=== PATIENT | male | born 1975 | race Caucasian/White ===

== ENCOUNTER 2023-01-13 15:17 | Outpatient (CLI) | payer OTHER, SELFPAY ==
--- NOTE | ~2023-01-13 | CT_ITS ---
CT Scan of the Chest without Contrast: Clinical Indication: Lung cancer screening, personal history of nicotine dependence Technique: Contiguous sections were acquired throughout the chest without intravenous contrast. Dose reduction technique was used on this scan by utilizing automated exposure control and iterative recon struction technique. The dose-length product (DLP) was 89.31 mGy-cm. Findings: There is no evidence of any significant mediastinal, hilar or axillary lymphadenopathy. Coronary farzad ry calcifications are present. There is no evidence of pleural or pericardial effusion. Calcified left upper lobe granuloma present. No other pulmonary abnormality seen. Images through the upper abdomen reveal no abnormalities. Impression: Lung RADS 2: Benign appearance. 12 month follow-up screening CT advised. Reviewed, dictated and finalized at location . Impression: Lung RADS 2: Benign appearance. 12 month follow-up screening CT advised.
== END 2023-01-13 15:18 | disposition home or self-care (01) ==
PROVIDERS: PCP Internal Medicine; Visit Provider Nurse Practitioner
DX: F17.210 Nicotine dependence, cigarettes, uncomplicated (principal)
CPT/HCPCS: 71271

== ENCOUNTER 2023-05-27 08:55 | Emergency (ER) | payer OTHER, SELFPAY ==
--- NOTE | 2023-05-27 08:56 | ECG_ITS ---
Measurements Intervals [place] Rate: 65 P: 55 PA: 152 QRS: 33 QRSD: 97 T: 38 QT: 373 QTc: 390 Interpretive Statements SINUS RHYTHM POSSIBLE LEFT ATRIAL ENLARGEMENT [-0.1mV P-WAVE IN V1/V2] INCOMPLETE RIGHT BUNDLE BRANCH BLOCK [90+ ms QRS DURATION, TERMINAL R IN V1/V2, 40+ ms S IN I/aVL/V4/V5/V6] NO PREVIOUS ECG AVAILABLE FOR COMPARISON Electronically Signed On 05-27-2023 12:45:40 CDT by Nelli Locke M.D.
[2023-05-27 08:57] VITALS: BP 143/82; PULSE 65; RESP 20; TEMP 36.6; O2SAT 100
--- NOTE | 2023-05-27 09:58 | PC.NURSE ---
Pt to nursing station, states he would like to check out. 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 Pt advised to stay for evaluation and if symptoms worsen to seek medical care.
== END 2023-05-27 09:58 | disposition left against medical advice (07) ==
PROVIDERS: Emergency Provider Preventive Medicine Aerospace Medicine; PCP Internal Medicine
DX: F41.9 Anxiety disorder, unspecified (principal)
CPT/HCPCS: 93005; 99199

== ENCOUNTER 2023-06-11 07:29 | Outpatient (CLI) | payer OTHER, SELFPAY ==
--- NOTE | ~2023-06-11 | MR_ITS ---
MRI of the brain Clinical History: Hemiplegia Technique: Axial and sagittal T1-weighted images were acquired. These were followed by axial T2-weigh mauro, diffusion weighted, gradient, and FLAIR images. Following intravenous administration of 13 cc Mu ltiHance gadolinium, T1-weighted fat-sat imaging was performed in the axial and coronal planes. Findings: No abnormal signal seen in the brain parenchyma. No acute infarct, intracranial hemorrhage, or mass lesion. Ventricles and subarachnoid spaces are unremarkable. Orbits are unremarkable. Paranasal sinuses and m astoid air cells are clear. Major intracranial flow voids are intact. No abnormal postcontrast enhancement identified. IMPRESSION: Unremarkable exam. Reviewed, dictated and finalized at location M. IMPRESSION: Unremarkable exam.
--- NOTE | ~2023-06-11 | US_ITS ---
Abdominal Sonogram: Real-time sonographic imaging of the abdomen was performed. Clinical History: Abdominal pain Findings: The liver appears normal with no evidence of mass lesion or bile duct dilatation. Main por daniella vein demonstrates normal direction of flow. The spleen is normal in size without evidence of foca l lesion. The gallbladder is well distended, and appears normal with no evidence of gallstone or wal l thickening. The common bile duct measures 6 mm. The visualized pancreas, aorta, and IVC are unrema rkable. The right kidney measures 11.3 cm in length and the left kidney measures 11.6 cm. There is no hydronephrosis or renal calculus. Impression: Unremarkable abdominal ultrasound. Reviewed, dictated and finalized at location . Impression: Unremarkable abdominal ultrasound.
--- NOTE | ~2023-06-11 | XR_ITS ---
EXAMINATION: XR chest 2V 06/11/2023 07:52 INDICATION: Shortness of breath PROCEDURE: 2 view chest COMPARISON: No prior studies for comparison. FINDINGS: The lungs are clear. The cardiomediastinal silhouette is within normal limits. There are no pleural effusions. There is no pneumothorax suspected. IMPRESSION: 1: NO ACUTE CARDIOPULMONARY DISEASE. Reviewed, dictated and finalized at location A.
== END 2023-06-11 07:30 | disposition home or self-care (01) ==
PROVIDERS: PCP Internal Medicine; Visit Provider Internal Medicine
DX: R10.11 Right upper quadrant pain (principal); R06.02 Shortness of breath; G81.90 Hemiplegia, unspecified affecting unspecified side
CPT/HCPCS: 70553; 71046; 76700; A9577

== ENCOUNTER 2023-11-29 05:43 | Emergency (ER) | payer OTHER, SELFPAY ==
[2023-11-29] VITALS (7 sets, daily range): BP systolic 125–157; BP diastolic 80–87; PULSE 60–84; RESP 14–20; TEMP 36.4–36.6; O2SAT 93–100
--- NOTE | ~2023-11-29 | XR_ITS ---
Clinical Indication: Dizziness, weakness PA and lateral views of the chest: Comparison: 06/11/2023 Findings: The lungs are clear, without evidence of focal consolidation or pleural effusion. Cardiome diastinal silhouette is within normal limits. Bones and soft tissues are unremarkable. Impression: Normal chest. Reviewed, dictated and finalized at [facility]. Impression: Normal chest.
--- NOTE | 2023-11-29 05:59 | ECG_ITS ---
Measurements Intervals [place] Rate: 78 P: 48 MO: 162 QRS: -24 QRSD: 112 T: 25 QT: 361 AVG RR: 760 QTc: 395 QTCB: 414 QTCF: 395 Interpretive Statements SINUS RHYTHM BORDERLINE LEFT AXIS DEVIATION [QRS AXIS < -20] POOR R WAVE PROGRESSION BORDERLINE ECG SEE SCANNED COPT FOR SIGNATURE MTDD
[2023-11-29 06:11] LABS: Basophils Absolute Auto 0.1 K/mm3 (0.0-0.1); Basophils Percent Auto 0.4 % (0.2-1.2); Eosinophils Absolute Auto 0.1 K/mm3 (0-0.3); Eosinophils Percent Auto 0.7 % (0-4.4); Hematocrit 49.8 % (42.0-52.0); Hemoglobin 16.7 g/dL (14.0-18.0); Immature Granulocyte Absolute 0.05 K/mm3 (0.00-0.031); Immature Granulocyte Percent A 0.4 % (0-0.5); Mean Corpuscular HGB Conc 33.5 g/dl (32-36); Mean Corpuscular Hemoglobin 30.5 pg (26-34); Mean Corpuscular Volume 90.9 fl (80-100); Mean Platelet Volume 10.2 fl (7.4-10.4); Monocytes Absolute Auto 0.7 K/mm3 (0.1-0.6); Monocytes Percent Auto 5.9 % (2.6-8.5); Neutrophils Percent Auto 78.6 % (45.5-73.1); Platelet Count Result 225 k/mm3 (150-375); Red Blood Count 5.48 M/mm3 (4.6-6.20); Red Cell Distribution Width 14.1 % (11.5-14.5); White Blood Count 11.4 K/mm3 (4.5-10.0)
[2023-11-29 06:26] LABS: Prothrombin Time 13.4 Seconds (11.1-14.7)
[2023-11-29 06:27] LABS: Partial Thromboplastin Time 26.5 Seconds (22.3-36.8)
[2023-11-29 06:32] LABS: Alanine Aminotransferase 24 U/L (6-50); Albumin Level 4.8 g/dL (3.5-5.1); Alkaline Phosphatase 64 U/L (38-126); Anion Gap 8 mmol/L (4-12); Aspartate Amino Transferase 29 U/L (17-59); Bilirubin,Total 0.9 mg/dL (0.2-1.3); Blood Urea Nitrogen 20 mg/dL (9-20); Calcium 9.6 mg/dL (8.4-10.2); Carbon Dioxide 23 mmol/L (22-30); Chloride 103 mmol/L (98-107); Estimated CRCL calculation 89 ml/min; Estimated Glomerular Filt Rate > 60; Glucose 123 mg/dL (65-110); Lipase 117 U/L (23-300); Sodium 134 mmol/L (137-145)
[2023-11-29 06:43] LABS: Troponin I < 0.012 ng/mL (0.000-0.034)
[2023-11-29] MEDS: LORazepam INJ (*CRX) 2 MG/ML VIAL 1 MG IV PUSH (07:44)
[2023-11-29] MEDS: SODIUM CHLORIDE 0.9% IV 1,000 ML 999 ML IV CONT (07:45)
--- NOTE | 2023-11-29 07:50 | ED.GENADULT ---
HPI - General Adult General Chief complaint: Dizziness Stated complaint: dizziness, nausea, gen weakness Time Seen by Provider: 11/29/23 06:55 History of Present Illness HPI narrative: 48-year-old male presenting to the emergency department for evaluation of multiple complaints. Patient states over the course of the last few years he has had in the, intermittent muscle cramping, abdominal cramping, which is with hyperventilation intermittent numbness and weakness. Patient states he has his multiple workup with this neuro imaging and GI follow-up. Patient is taking some medications for anxiety but is not feel that they are helping. Upon arrival emergency department patient does appear anxious. Patient states that he presented to the ED today trying to find an answer for these symptoms. Patient denies any acute changes in his symptoms today Related Data Allergies Allergy/AdvReac Type Severity Reaction Status Date / Time Penicillins Allergy Unknown HIVES? Verified 11/29/23 06:00 Review of Systems Review of Systems: All systems reviewed & are unremarkable except as noted in HPI and below Exam Narrative: APPEARANCE: Well appearing, no pain, no distress, well-nourished. HEAD: normocephalic, atraumatic. EYES: PERRLA/EOMI, conjunctivae clear. NOSE: Normal no drainage EARS:TMS clear with good light reflex. THROAT: Pharynx clear, no exudate. NECK: Supple. No adenopathy, no masses. RESPIRATORY: Airway patent, respirations nonlabored. Clear to auscultation bilaterally, no rales, rhonchi, wheezing. CARDIOVASCULAR: Regular rate and rhythm without murmurs rubs or gallops. ABDOMINAL: Soft, nontender, nondistended, normal bowel sounds MUSCULOSKELETAL: Moves all extremities. Strength/ROM intact, No edema, No calf tenderness. NEURO: Alert. Cranial nerves II through XII intact. Good gait. Good coordination SKIN: Warm, dry. Normal Color PSYCHIATRIC: Anxious affect Course Course Emergency Course: Patient felt improved with treatment and was discharged to home. Vital Signs Vital signs: Vital Signs Temperature 97.5 F L 11/29/23 05:44 Pulse Rate 84 11/29/23 05:44 Respiratory Rate 17 11/29/23 05:44 Blood Pressure 157/87 H 11/29/23 05:44 Pulse Oximetry 93 11/29/23 05:44 Oxygen Delivery Room Air 11/29/23 05:44 Temperature 98 F 11/29/23 07:26 Pulse Rate 61 11/29/23 10:08 Respiratory Rate 19 11/29/23 10:08 Blood Pressure 125/80 11/29/23 10:08 Pulse Oximetry 98 11/29/23 10:08 Oxygen Delivery Room Air 11/29/23 07:20 Medical Decision Making MDM Narrative Medical decision making narrative: 48-year-old male presenting to the emergency department for evaluation of increased anxiety. Patient is afebrile with a mild leukocytosis 11.4. No acute abnormalities on the patient's CMP troponin was negative lipase was negative. Chest x-ray shows no acute abnormality. Patient did feel improved with treatment. Patient was encouraged of close follow-up with his primary care physician. Differential Diagnosis Differential Diagnosis: Anxiety, pneumonia, ACS Vital Signs Vital Signs: Vital Signs Temperature 97.5 F L 11/29/23 05:44 Pulse Rate 84 11/29/23 05:44 Respiratory Rate 17 11/29/23 05:44 Blood Pressure 157/87 H 11/29/23 05:44 Pulse Oximetry 93 11/29/23 05:44 Oxygen Delivery Room Air 11/29/23 05:44 Temperature 98 F 11/29/23 07:26 Pulse Rate 61 11/29/23 10:08 Respiratory Rate 19 11/29/23 10:08 Blood Pressure 125/80 11/29/23 10:08 Pulse Oximetry 98 11/29/23 10:08 Oxygen Delivery Room Air 11/29/23 07:20 Lab Data Lab results reviewed: Yes I reviewed the patient's lab results. 11/29/23 06:02 11/29/23 06:02 Labs: Lab Results 11/29/23 11/29/23 11/29/23 Range/Units 06:02 07:49 09:19 WBC 11.4 H (4.5-10.0) K/mm3 RBC 5.48 (4.6-6.20) M/mm3 Hgb 16.7 (14.0-18.0) g/dL Hct 49.8 (42.0-52.0) % MCV 90.9 (8
--- NOTE | 2023-11-29 07:55 | PC.NURSE ---
called lab and added on TSH reflex
[2023-11-29 08:04] LABS: Appearance Urine Clear (Clear); Bilirubin Urine Negative (Negative); Blood Urine Negative (Negative); Color Urine Yellow (Yellow); Glucose Urine UA Negative (Negative); Ketones Urine Negative (Negative); Leukocyte Esterase Ur Negative LEU/UL (Negative); Nitrate Urine Negative (Negative); Protein Urine Negative (Negative); Urobilinogen Urine 0.2 mg/dL (<2.0)
[2023-11-29 08:14] LABS: Add Urine Microscopic? NO; Specific Grav Ur 1.003 (1.001-1.035)
--- NOTE | 2023-11-29 09:16 | ECG_ITS ---
Measurements Intervals [place] Rate: 54 P: 48 VT: 159 QRS: -14 QRSD: 114 T: 19 QT: 393 AVG RR: 1095 QTc: 380 QTCB: 375 QTCF: 381 Interpretive Statements SINUS BRADYCARDIA LEFT AXIS DEVIATION BORDERLINE ECG SEE SCANNED COPY FOR SIGNATURE MTDD
[2023-11-29 09:52] LABS: Troponin I < 0.012 ng/mL (0.000-0.034)
== END 2023-11-29 10:29 | disposition home or self-care (01) ==
PROVIDERS: Emergency Medicine; Emergency Provider Emergency Medicine; PCP Internal Medicine
DX: F41.9 Anxiety disorder, unspecified (principal)
CPT/HCPCS: 36415; 71046; 80053; 81003; 83690; 84443; 84484; 85025; 85610; 85730; 93005; 96361; 96374; 99284; J2060; J7030

== ENCOUNTER 2024-02-03 08:58 | Outpatient (CLI) | payer OTHER, SELFPAY ==
--- NOTE | ~2024-02-03 | US_ITS ---
EXAMINATION: US art doppler w press LE BI DATE: 02/03/2024 10:27 INDICATION: Disorder of arteries and arterials with lower limb pain, numbness, tingling and temperatu re differences between the lower limbs TECHNIQUE: Segmental pressures and plethysmographic and Doppler waveforms of the brachial and lower e xtremity arteries were obtained. COMPARISON: None. FINDINGS: Right and left brachial artery pressures of 130 mm Hg and 124 mm Hg, respectively, are concordant (no rmal difference <= 30 mmHg). The right and left high-thigh pressure indices are 0.97 and 1.20, respec tively (normal > 1.2). The right ankle-brachial index (RUDY) is 1.20 (normal >= 0.9-1). The right great toe-brachial index (T BI) is 0.99 (normal >= 0.6-0.8). The right lower extremity segmental pressure gradients are normal (n ormal gradients <= 20-30 mmHg between adjacent levels on the same leg or the same levels on the two l egs). Arterial waveforms are triphasic at the right common femoral, superficial femoral and popliteal arteries and biphasic at the right posterior tibial and dorsalis pedis arteries with brisk systolic upstrokes throughout. The left RUDY is 1.16. The left TBI is 0.47. The left lower extremity segmental pressure gradients are increased between the left high thigh and the left [id number] popliteal artery. Arterial wavefor ms are triphasic at the left common femoral, superficial femoral and popliteal arteries and biphasic at the left posterior tibial and dorsalis pedis arteries with brisk systolic upstrokes throughout. IMPRESSION: 1. . Bilateral arterial occlusive disease with mildly decreased right high thigh pressure index with normal right RUDY and TBI and with mildly decreased left TBI. Reviewed, dictated and finalized at location A. IMPRESSION: 1. . Bilateral arterial occlusive disease with mildly decreased right high thig h pressure index with normal right RUDY and TBI and with mildly decreased left T BI.
== END 2024-02-03 08:59 | disposition home or self-care (01) ==
PROVIDERS: PCP Internal Medicine; Visit Provider Internal Medicine
DX: I77.89 Other specified disorders of arteries and arterioles (principal)
CPT/HCPCS: 93923

== ENCOUNTER 2024-03-01 07:30 | Outpatient (CLI) | payer OTHER, SELFPAY ==
--- NOTE | ~2024-03-01 | CT_ITS ---
CT Scan of the Chest without Contrast: Clinical Indication: Lung cancer screening, nicotine dependence Technique: Contiguous sections were acquired throughout the chest without intravenous contrast. Dose reduction technique was used on this scan by utilizing automated exposure control and iterative recon struction technique. The dose-length product (DLP) was 79.08 mGy-cm. COMPARISON: 01/13/2023 Findings: There is no evidence of any significant mediastinal, hilar or axillary lymphadenopathy. Extensive cor onary artery calcifications are present. There is no evidence of pleural or pericardial effusion. The lungs are clear, aside from calcified left upper lobe granuloma. Images through the upper abdomen reveal no abnormalities. Impression: Lung RADS 2: Benign appearance. 12 month follow-up screening CT advised. Reviewed, dictated and finalized at location . Impression: Lung RADS 2: Benign appearance. 12 month follow-up screening CT advised.
== END 2024-03-01 07:31 | disposition home or self-care (01) ==
LOC: ANHIMG 07:31
PROVIDERS: PCP Internal Medicine; Visit Provider Physician Assistant
DX: Z12.2 Encounter for screening for malignant neoplasm of respiratory organs (principal); Z87.891 Personal history of nicotine dependence
CPT/HCPCS: 71271

== ENCOUNTER 2024-03-01 07:32 | Outpatient (CLI) | payer OTHER, SELFPAY ==
--- NOTE | 2024-03-01 12:26 | WPDSIXMINUTE ---
Six Minute Walk Procedure Procedure Performed Pulmonary Stress Test (6 min walk) Six Minute Walk Six Minute Walk: This is a 6 minute walk test. The test was performed and interpreted in accordance with the 2014 ERS/ATS task force guidelines. Findings: The patient's resting room air oxygen saturation measured by pulse oximetry was 98% and heart rate was 54 bpm. Patient ambulated for 529 meters and oxygen saturation remained 91 to 98%. Heart rate at the end of the study was 66 bpm. The patient did not qualify for supplemental oxygen at rest or with ambulation. There are no prior studies for comparison.
--- NOTE | 2024-03-01 12:28 | WPDPFTINT ---
PFT Procedure Performed PFT Procedure Performed Spirometry with Pre/Post Bronchodilator Plethysmography (Lung Vol) Diffusing Cap (DLCO) Flow Vol Loop PFT Interpretation This is a pulmonary function test with pre and post-bronchodilator spirometry, plethysmography and diffusing capacity. The test was performed and results interpreted in accordance with the 2019 and 2005 ATS/ERS Task Force guidelines respectively using the Global Lung Function Initiative-2012 reference equations. Patient demonstrated good effort and cooperation. Reproducibility criteria were met. The quality of the pre bronchodilator spirometry maneuver was Grade B and post bronchodilator spirometry maneuver was Grade A. Findings: Spirometry: The contour the inspiratory and expiratory flow tracing are normal. The pre bronchodilator FVC is 5.43 L, 109% predicted. The pre bronchodilator FEV1 is 4.12 L, 104% predicted. The pre bronchodilator FEV1: FVC ratio is 76%. The post bronchodilator FVC is 5.43 L, representing no change. The post bronchodilator FEV1 is 4.33 L, representing a 5% increase. The post bronchodilator FEV1: FVC ratio is 80%. Plethysmography: The total lung capacity is 7.61 L, 109% predicted. The functional residual capacity is 3.45 L, 97% predicted. The residual volume is 2.11 L, 103% predicted. Diffusing capacity: The diffusing capacity unadjusted for hemoglobin and carboxyhemoglobin is 28.7, 93% predicted. The diffusing capacity adjusted for alveolar volume is 4.24, 93% predicted. Impression: The spirometry is normal without evidence of an obstructive abnormality. There is no significant improvement after inhaling a single dose of albuterol. The lung volumes are normal. The diffusing capacity is normal. There are no prior studies for comparison
== END 2024-03-01 07:33 | disposition home or self-care (01) ==
LOC: ANHPFT 07:32
PROVIDERS: PCP Internal Medicine; Visit Provider Physician Assistant
DX: R06.02 Shortness of breath (principal)
CPT/HCPCS: 71271; 94060; 94618; 94726; 94729

== ENCOUNTER 2024-04-17 08:49 | Emergency (ER) | payer OTHER, SELFPAY ==
[2024-04-17] VITALS (7 sets, daily range): BP systolic 129–136; BP diastolic 82–91; PULSE 54–63; RESP 12–20; TEMP 36.6–36.8; O2SAT 98–100
--- NOTE | ~2024-04-17 | XR_ITS ---
EXAMINATION: XR chest 2V DATE: 04/17/2024 11:51 INDICATION: Shortness of breath. Right upper abdominal pain. TECHNIQUE: PA and lateral views of the chest were obtained. COMPARISON: Chest radiograph dated 11/29/[address] dated 03/01/2024 FINDINGS: Again seen is a calcified nodule at the left apex consistent with old granulomatous disease. No other air space opacities, pulmonary edema, pleural effusion or pneumothorax. The cardiomediastinal silhou ette is normal. There is some excreted contrast in the bilateral renal collecting systems related to the immediately prior contrast enhanced CT of the abdomen and pelvis.. IMPRESSION: 1. No acute cardiopulmonary disease. Reviewed, dictated and finalized at location A.
--- NOTE | ~2024-04-17 | CT_ITS ---
EXAMINATION: CT abdomen pelvis w con DATE: 04/17/2024 11:43 INDICATION: Abdominal pain TECHNIQUE: Computed tomography (CT) of the abdomen and pelvis was performed with 100 mL Omnipaque-350 intravenous contrast. Automated exposure control and iterative reconstruction technique were employe d. The dose-length product was 385.05 mGy-cm. COMPARISON: None FINDINGS: Mild dependent atelectasis in the bilateral lower lobes. Heart size is normal. Liver, gallbladder, sp alex, pancreas, bilateral adrenal glands and kidneys are normal. There is moderate colonic diverticul osis with a sigmoid predominance. There is no adjacent inflammatory change to suggest diverticulitis. Mild wall thickening along the sigmoid colon. Small bowel and appendix are normal. Bladder is normal . No free intraperitoneal gas or fluid. No pathologically enlarged abdominal or pelvic lymphadenopath y. Moderate lumbar spondylosis. IMPRESSION: 1. Sigmoid predominant diverticulosis without focal adjacent stranding inflammatory stranding to sugg est diverticulitis. 2. mild wall thickening along the sigmoid colon which could be artifact of decompressed state, scarri ng related to prior diverticulitis or more acute infectious or inflammatory colitis. Reviewed, dictated and finalized at location A. IMPRESSION: 1. Sigmoid predominant diverticulosis without focal adjacent stranding inflamma tory stranding to suggest diverticulitis. 2. mild wall thickening along the sigmoid colon which could be artifact of deco mpressed state, scarring related to prior diverticulitis or more acute infectio us or inflammatory colitis.
--- NOTE | 2024-04-17 10:09 | ED.GENADULT ---
HPI - General Adult General Chief complaint: Unspecified Stated complaint: sob, dizziness, abd pain, undigested food in stool Time Seen by Provider: 04/17/24 10:09 Source: patient Mode of arrival: ambulatory Limitations: no limitations History of Present Illness HPI narrative: Pt is a 48-year-old male who presents to the ER with multiple medical complaints. He endorses shortness of breath, upper RUQ abdominal pain, undigested food in his stool, and dizziness. Pt reports he has seen cardiology and pulmonology in the past and his tests were all inconclusive. He reports they told him he might be having anxiety symptoms related to his job. Pt works at the [employer] in [place] and reports his dizziness increases throughout the day. Pt reports he has had these symptoms intermittently for months. He denies blood in his stool, active chest pain, or current shortness of breath. Pt reports his last bowel movement was this morning and it was undigested food. He also reports having a history of alcoholism and he stopped drinking in 2018, but had a drink over the weekend. Pt takes Repatha and has an inhaler to use intermittently at home, but it doesn't help. Related Data Home Medications Medication Instructions Recorded Confirmed atorvastatin 20 mg tablet 20 mg PO DAILY 02/15/24 02/15/24 pantoprazole 40 mg tablet,delayed mg PO 02/15/24 02/15/24 release Allergies Allergy/AdvReac Type Severity Reaction Status Date / Time Penicillins Allergy Unknown HIVES? Verified 04/17/24 08:55 wasp AdvReac Mild Other Uncoded 04/17/24 08:55 Review of Systems Review of Systems: All systems reviewed & are unremarkable except as noted in HPI and below PMFSH Past Medical History Medical History Anxiety Shortness of breath Social History Social History Smoking status: Former smoker Smokeless tobacco user: chewing tobacco Exam Narrative: GENERAL: Well-appearing, well-nourished and in no acute distress. HEENT: Head normocephalic, atraumatic. Eyes pupils equal round and reactive to light, extraocular movements intact. NECK: Supple, normal range of motion, no JVD. No lymphadenopathy. CARDIAC: Regular rate and rhythm without murmurs, rubs or gallops. RESPIRATORY: Clear to auscultation bilaterally. No wheezes, rales or ronchi. ABDOMEN: Soft, mild tenderness in upper RQ, normoactive bowel sounds throughout, no guarding, no rebound. No masses appreciated. EXTREMITIES: Normal range of motion, no swelling, clubbing or other deformities. NEUROLOGICAL: Cranial nerves II through XII grossly intact, no focal deficits noted. Normal gait, normal speech. SKIN: Warm, dry, normal color, no rashes, no lesions. Course Vital Signs Vital signs: Vital Signs Temperature 36.6 C 04/17/24 08:50 Pulse Rate 63 04/17/24 08:50 Respiratory Rate 16 04/17/24 08:50 Blood Pressure 129/82 04/17/24 08:50 Pulse Oximetry 99 04/17/24 08:50 Oxygen Delivery Room Air 04/17/24 08:50 Temperature 36.6 C 04/17/24 12:01 Pulse Rate 55 L 04/17/24 12:30 Respiratory Rate 19 04/17/24 12:30 Blood Pressure 136/91 H 04/17/24 12:30 Pulse Oximetry 99 04/17/24 12:30 Oxygen Delivery Room Air 04/17/24 08:50 Fraction of Inspired Oxygen 98 04/17/24 10:25 Medical Decision Making MDM Narrative Medical decision making narrative: Pt is a 48-year-old male who presents to the ER with multiple medical complaints. He endorses shortness of breath, upper RUQ abdominal pain, undigested food in his stool, and dizziness. Pt reports he has seen cardiology and pulmonology in the past and his tests were all inconclusive. He reports they told him he might be having anxiety symptoms related to his job. Pt works at the [employer] in [place] and reports his dizziness increases throughout the day. Pt reports he has had these
--- NOTE | 2024-04-17 10:25 | ECG_ITS ---
Test Date: 2024-04-17 13:04:57 Measurements Intervals [place] Rate: 44 P: 14 ID: [id number] QRS: -12 QRSD: 121 T: 11 QT: 472 QTc: 405 Interpretive Statements SINUS BRADYCARDIA MODERATE INTRAVENTRICULAR CONDUCTION DELAY [110+ ms QRS DURATION] No previous ECG available for comparison Electronically Signed On 04-18-2024 15:25:41 CDT by Nelli Locke M.D.
--- NOTE | 2024-04-17 10:42 | PC.NURSE ---
Pt reports multiple c/o.RN explained to pt anything emergent will be ruled out & treated. States I think it is from my work environment. I'm going to need longer than a week off. 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 Pt states I'm looking for a new doctor. He started me on schizophrenia medicine last week. He told it was panic disorder. I haven't heard of any such diagnosis RN informed pt that there is several kinds of panic disorder, it is real diagnosis. Pt voices understanding
[2024-04-17 10:47] LABS: Basophils Percent Auto 0.4 % (0.2-1.2); Eosinophils Percent Auto 0.4 % (0-4.4); Hematocrit 41.4 % (42.0-52.0); Immature Granulocyte Absolute 0.01 K/mm3 (0.00-0.031); Immature Granulocyte Percent A 0.1 % (0-0.5); Lymphocytes Absolute Auto 1.73 K/mm3 (0.9-3.2); Lymphocytes Percent Auto 24.3 % (18.3-44.2); Mean Corpuscular HGB Conc 33.8 g/dl (32-36); Mean Corpuscular Hemoglobin 31.4 pg (26-34); Mean Corpuscular Volume 92.8 fl (80-100); Mean Platelet Volume 10.5 fl (7.4-10.4); Monocytes Absolute Auto 0.5 K/mm3 (0.1-0.6); Monocytes Percent Auto 6.8 % (2.6-8.5); Neutrophils Absolute Auto 4.8 K/mm3 (1.3-6.7); Platelet Count Result 213 k/mm3 (150-375); Red Blood Count 4.46 M/mm3 (4.6-6.20); White Blood Count 7.1 K/mm3 (4.5-10.0)
[2024-04-17 10:58] LABS: Alanine Aminotransferase 34 U/L (6-50); Albumin Level 4.5 g/dL (3.5-5.1); Alkaline Phosphatase 48 U/L (38-126); Anion Gap 9 mmol/L (4-12); Aspartate Amino Transferase 35 U/L (17-59); Bilirubin,Total 0.6 mg/dL (0.2-1.3); Blood Urea Nitrogen 13 mg/dL (9-20); Calcium 9.4 mg/dL (8.4-10.2); Carbon Dioxide 31 mmol/L (22-30); Chloride 98 mmol/L (98-107); Estimated CRCL calculation 112 ml/min; Estimated Glomerular Filt Rate > 60; Glucose 105 mg/dL (65-110); Lipase 73 U/L (23-300); Sodium 138 mmol/L (137-145)
[2024-04-17 10:59] LABS: Add Urine Microscopic? NO; Appearance Urine Clear (Clear); Bilirubin Urine Negative (Negative); Blood Urine Negative (Negative); Color Urine Yellow (Yellow); Glucose Urine UA Negative (Negative); Ketones Urine Negative (Negative); Leukocyte Esterase Ur Negative LEU/UL (Negative); Nitrate Urine Negative (Negative); Protein Urine Negative (Negative); Specific Grav Ur 1.002 (1.001-1.035); Urobilinogen Urine 0.2 mg/dL (<2.0); pH Urine 6.5 (5.0-9.0)
[2024-04-17 11:11] LABS: Troponin I < 0.012 ng/mL (0.000-0.034)
[2024-04-17] MEDS: SODIUM CHLORIDE 0.9% IV 1,000 ML 999 ML IV CONT (11:19)
[2024-04-17] MEDS: FAMOTIDINE 20 MG/2 ML VIAL IV PUSH (11:20)
[2024-04-17 11:35] LABS: Influenza A QL RT-PCR Negative (Negative); Influenza B QL RT-PCR Negative (Negative); RSV RNA, RT-PCR Negative (Negative); SARS-CoV-2 RNA PCR Negative (Negative)
--- NOTE | 2024-04-17 12:57 | PC.NURSE ---
Chemistry notified of new orders.
[2024-04-17 13:26] LABS: Erythrocyte Sedimentation Rate 12 mm/hr (0-20)
[2024-04-17 13:35] LABS: Albumin Level 4.2 g/dL (3.5-5.1); CRP < 0.5 mg/dL (<1.0)
== END 2024-04-17 15:53 | disposition home or self-care (01) ==
PROVIDERS: Emergency Provider Registered Nurse; PCP Internal Medicine
DX: F41.9 Anxiety disorder, unspecified (principal); R10.9 Unspecified abdominal pain; Z20.822 Contact with and (suspected) exposure to COVID-19
CPT/HCPCS: 36415; 71046; 74177; 80053; 81003; 82040; 83690; 84484; 85025; 85652; 86140; 87637; 93005; 96361; 96374; 99284; J7030; Q9967